=== PATIENT | male | born 1970 | race Caucasian/White ===

== ENCOUNTER → 2023-04-09 | Outpatient (CLI) | payer BC ==
--- NOTE | 2023-04-12 08:37 | CT ---
EXAMINATION TYPE: CT iac wo con DATE OF EXAM: 04/09/2023 COMPARISON: None HISTORY: 52 year-old male H90.0, Chronic hearing loss in both ears. CT DLP: 142.7 mGycm Automated exposure control for dose reduction was used. TECHNIQUE: Contiguous high-resolution scanning of the temporal bones without contrast. Coronal refor matted images obtained. FINDINGS: There is no abnormality of visualized intracranial structures. The skull base shows no gross abnormality. There is a mild debris along the inferior aspect of the opening of the external auditory canal on the right. Otherwise, the bilateral external auditory canals are clear. The middle ear cavities and mastoid air cells are well pneumatized. There is no abnormality of middle ear ossicles. The round and oval windows are normal. There is no abnormality of bony labyrinths. The vestibular and cochlear aqueducts are well visualized. The facial nerve canal is normal bilaterally. The internal auditory canal and meati are symmetrical bilaterally. There is no evidence of fractures. Scattered mild mucosal thickening throughout the paranasal sinuses. Reformatted images confirm above findings. IMPRESSION: 1. Some minimal debris at the opening of the right external auditory canal. 2. Otherwise, unremarkable temporal bone CT. 3. Mild chronic paranasal sinus disease.
== END | disposition home or self-care (01) ==
LOC: RADCTMAIN 16:15
PROVIDERS: ATTEND Otolaryngology
DX: H90.0 Conductive hearing loss, bilateral (principal); J34.89 Other specified disorders of nose and nasal sinuses
CPT/HCPCS: 70480

== ENCOUNTER → 2023-06-18 | Outpatient (CLI) | payer BC ==
[2023-06-18 16:36] LABS: ALT 66 U/L (10-49); AST 37 U/L (14-35); Albumin 4.5 d/dL (3.8-4.9); Albumin/Globulin Ratio 1.73 Ratio (1.60-3.17); Alkaline Phosphatase 101 U/L (41-126); Calcium 9.8 mg/dL (8.7-10.3); Carbon Dioxide 23.7 mmol/L (21.6-31.8); Chloride 102 mmol/L (96-109); Chol/HDL Ratio 3.96 Ratio; Globulin 2.6 d/dL (1.6-3.3); Glucose 110 mg/dL (70-110); Potassium 4.6 mmol/L (3.5-5.5); Sodium 137 mmol/L (135-145); Total Bilirubin 0.5 mg/dL (0.3-1.2); Total Protein 7.1 d/dL (6.2-8.2)
== END | disposition home or self-care (01) ==
LOC: LABWHC1 07:39
DX: Z00.00 Encounter for general adult medical examination without abnormal findings (principal); E78.5 Hyperlipidemia, unspecified; R73.03 Prediabetes
CPT/HCPCS: 36415; 80053; 80061; 83036

== ENCOUNTER 2023-10-13 08:41 | Day surgery (SDC) | payer BC ==
[2023-10-08 15:50] VITALS: BMI 34.9
[~2023-10-13 08:41] MED LIST: DEXAMETHASONE SOD PHOSPHATE 4 MG/ML 1 ML VIAL IV ONE; FAMOTIDINE 20 MG/2 ML VIAL IV PRN; HYDROmorphone 0.5 MG/0.5 ML SYRINGE IVP PRN; LACTATED RINGERS 1,000 ML IV SCH; LIDOCAINE 1% (10MG/ML) FOR IV START INTRADERMA PRN; MIDAZOLAM 2 MG/2 ML VIAL IV PRN; ONDANSETRON 4 MG/2 ML VIAL IVP ONE
[2023-10-13] MEDS: OXYMETAZOLINE 0.05% NASL SPRAY 1 SPRAY BOTTLE EA NOSTRIL PRN ×5 (09:20→09:40)
[2023-10-13 09:22] VITALS: RESP 16
[2023-10-13] MEDS ORDERED: fentaNYL (PF) 50 MCG/ML 2 ML AMP ONE (09:56)
[2023-10-13] MEDS ORDERED: KETOROLAC 15 MG/ML 1 ML VIAL ONE (09:56)
[2023-10-13] MEDS ORDERED: MIDAZOLAM 2 MG/2 ML VIAL ONE (09:56)
[2023-10-13] MEDS ORDERED: LIDOCAINE 1% INJ 10MG/ML (20 ML MDV) ONE (09:56)
[2023-10-13] MEDS ORDERED: SUCCINYLCHOLINE CHLORIDE 200 MG/10 ML VIAL IV ONE (09:56)
[2023-10-13] MEDS ORDERED: PROPOFOL 10 MG/ML 20 ML VIAL IV ONE (09:56)
[2023-10-13] MEDS ORDERED: LIDOCAINE 1%-EPI 1:100,000 50 ML VIAL SQ ONE ×2 (10:16)
[2023-10-13] MEDS ORDERED: BACITRACIN OINT 1 EACH PACKET TOPICAL ONE (10:18)
--- NOTE | 2023-10-13 10:39 | P.OP ---
Date of Procedure: 10/13/23 Preoperative Diagnosis: Deviated nasal septum Inferior turbinate hypertrophy Postoperative Diagnosis: Same Procedure(s) Performed: Septoplasty Outfracture and submucous resection inferior turbinates Anesthesia: JANELA Surgeon: Zaid Dooley Estimated Blood Loss (ml): 2 Pathology: other (Septal bone and cartilage) Condition: stable Disposition: PACU Indications for Procedure: This 53-year-old white male with difficulties with chronic nasal airway obstruction and mouth breathing tendencies. Operative Findings: Nasal septum deviated to the right anteriorly to the left posteriorly with the right approximately 50% obstruction in the left approximately 80% obstruction inferior turbinate hypertrophy bilateral Description of Procedure: DESCRIPTION OF PROCEDURE: The patient was brought to the operative suite, placed in the supine position. The patient underwent induction of general anesthesia with oral endotracheal intubation without difficulty. The patient was prepped and draped in the usual aseptic fashion. 1% lidocaine with 1:100,000 epinephrine was infused submucosally on both sides of the nasal septum. While this was taking vasoconstrictive effect, the inferior turbinates were infractured with a Walker elevator. Partial submucous resection of the inferior turbinates was performed with Coblation device ablating a portion of the submucosal soft tissue. The inferior turbinates were then outfractured with a Walker elevator. A left hemitransfixion incision was then made through the mucoperichondrial. Mucoperiosteal flap on the left elevated. Bony cartilaginous junction was disarticulated and mucoperiosteal flap on the right was elevated. Bony nasoseptal deformity were removed with Faby forceps and an inferior cartilaginous strip was removed, leaving a full 1.5 cm caudal strut. There was some missing bone and cartilage from previous surgery Checking intranasally, this corrected the nasal septal deformities and the hemitransfixion incision was closed with running 4-0 chromic suture. The bilateral Carranza airway splints coated in bacitracin ointment were placed in the nasal cavities and sutured transseptally with 4-0 nylon suture. The patient was then suctioned in an orogastric fashion. The patient was allowed to emerge from general anesthesia, having tolerated the procedure well and was extubated in the operating suite, transferred to postoperative recovery area in satisfactory condition.
[2023-10-13 11:05] VITALS: TEMP 97
[2023-10-13 11:56] VITALS: BP 137/88
[2023-10-13 12:22] VITALS: PULSE 80
== END 2023-10-13 12:23 | disposition home or self-care (01) ==
LOC: OR 08:41
PROVIDERS: ATTEND Otolaryngology
DX: J34.2 Deviated nasal septum (principal); J34.3 Hypertrophy of nasal turbinates; I10 Essential (primary) hypertension; F10.90 Alcohol use, unspecified, uncomplicated; Z87.891 Personal history of nicotine dependence; Z79.899 Other long term (current) drug therapy; Z98.890 Other specified postprocedural states
CPT/HCPCS: 30520; 30140; J2250; J0330; J1100; J0690; J2405; J2001; J3010; J3490; J1885; J2704; 88300

== ENCOUNTER → 2024-09-02 | Outpatient (CLI) | payer BC ==
[2024-09-02 13:06] LABS: Basophils # (A) 0.04 X 10*3/uL (0.00-0.10); Basophils % (A) 0.5 %; Eosinophils # (A) 0.49 X 10*3/uL (0.04-0.35); HCT 43.3 % (39.6-50.0); HGB 14.7 g/dL (13.0-17.0); Lymphocytes % (A) 17.3 %; MCHC 33.9 g/dL (32.0-37.0); MCV 88.4 FL (80.0-97.0); Mean Platelet Volume 9.5 FL (9.5-12.2); Monocytes % (A) 9.9 %; NRBC Per 100 WBC 0 X 10*3/uL (0.00-0.01); Neutrophils # (A) 5.35 X 10*3/uL (1.80-7.70); Neutrophils % (A) 65.9 %; Platelet Count 348 X 10*3/uL (140-440); RDW 12.7 % (11.5-14.5); WBC 8.11 X 10*3/uL (4.50-10.00)
[2024-09-02 13:26] LABS: ALT 39 U/L (10-49); AST 27 U/L (14-35); Albumin 4.1 g/dL (3.8-4.9); Albumin/Globulin Ratio 1.86 Ratio (1.60-3.17); Alkaline Phosphatase 102 U/L (41-126); Blood Urea Nitrogen 12.2 mg/dL (9.0-27.0); Carbon Dioxide 26.3 mmol/L (21.6-31.8); Chloride 106 mmol/L (96-109); Chol/HDL Ratio 3.35 Ratio; Globulin 2.2 g/dL (1.6-3.3); Glucose 106 mg/dL (70-110); LDL Cholesterol,Calculated 97.7 mg/dL (0.0-131.0); Potassium 4.4 mmol/L (3.5-5.5); Sodium 140 mmol/L (135-145); Total Bilirubin 0.7 mg/dL (0.3-1.2); Total Protein 6.3 g/dL (6.2-8.2)
== END | disposition home or self-care (01) ==
LOC: LABWHC1 08:09
PROVIDERS: ATTEND Internal Medicine
DX: I10 Essential (primary) hypertension (principal); E78.2 Mixed hyperlipidemia; R73.01 Impaired fasting glucose
CPT/HCPCS: 36415; 80053; 80061; 83036; 84443; 85025

== ENCOUNTER → 2024-11-10 | Outpatient (CLI) | payer BC ==
[2024-11-11 00:45] LABS: Alternaria alternata IgE <0.10 kU/L; Aspergillus fumagatus IgE <0.10 kU/L; Birch IgE 5.98 kU/L; Cat Epith & Dander IgE 6.19 kU/L; Cladosporian herbarum IgE <0.10 kU/L; Cockroach IgE <0.10 kU/L; Dermato. farinae IgE <0.10 kU/L; Dog Dander IgE 0.11 kU/L; Elm IgE 0.19 kU/L; Maple (Box Elder) IgE 0.72 kU/L; Oak IgE 1.38 kU/L; Ragweed,Common IgE 2.11 kU/L
== END | disposition home or self-care (01) ==
LOC: LABWHC1 15:07
PROVIDERS: ATTEND Otolaryngology
DX: J30.89 Other allergic rhinitis (principal)
CPT/HCPCS: 36415; 82785; 86003

== ENCOUNTER → 2024-11-17 | Outpatient (CLI) | payer BC ==
--- NOTE | 2024-11-17 16:17 | CT ---
EXAMINATION TYPE: CT sinus wo con CT DLP: 451 mGycm, Automated exposure control for dose reduction was used. DATE OF EXAM: 11/17/2024 4:11 PM COMPARISON: CTA IAC 04/09/2023. CLINICAL INDICATION:Male, 54 years old with history of J32.0 CHRONIC MAXILLARY SINUSITIS; PHH, sinus congestion CONTRAST: None. TECHNIQUE: Multiple thin axial images were obtained through the paranasal sinuses without the use of IV contrast. Additional coronal and sagittal reformatted images were submitted for evaluation. FINDINGS: Frontal sinuses: Normally developed and aerated. Frontal Recess: Clear Maxillary Sinuses: Normally developed. The right maxillary sinus is well-aerated. There is a stable 9 mm mucous retention cyst within the inferior left maxillary sinus Maxillary Infundibula(OMC): Clear, No Dave cells identified. Ethmoid sinuses: Normally developed and aerated. Ethmoidal notch: Supraorbital pneumatization is iden tified. Sphenoid sinuses: Normally developed and aerated. There is sellar sphenoid sinus pneumatization witho ut evidence of dehiscence. No dehiscence of carotid canal. No evidence of optic nerve dehiscence wit hin the sphenoid sinus. No evidence of Onodi cells. Sphenoethmoidal recesses: Clear. Nasal septum: Within normal limits.. Nasal Turbinates: Within normal limits. Mastoid air cells & middle ears: The air cells are clear. The middle ears are grossly unremarkable. Modified Soft tissues & Brain: Partially seen without gross abnormality. Globes are intact. Other: Cribriform plate demonstrates symmetric Keros classification type 2 cribriform plate. No evidence of bony dehiscence of skull base. Lamina papyracea is intact without evidence of remote orbital fracture or orbital prolapse into the e thmoid sinus. IMPRESSION: 1. No significant mucosal sinus disease. Stable left inferior maxillary sinus subcentimeter mucous re tention cyst. 2. The ostiomeatal units, frontonasal and sphenoethmoidal recesses are clear. [facility], , 11/17/2024 4:15 PM
== END | disposition home or self-care (01) ==
LOC: RADCTMAIN 15:49
PROVIDERS: ATTEND Otolaryngology
DX: J32.0 Chronic maxillary sinusitis (principal)
CPT/HCPCS: 70486

== ENCOUNTER → 2025-01-02 | Outpatient (CLI) | payer BC ==
[2025-01-02 16:47] VITALS: BP 136/89; PULSE 76; RESP 16; TEMP 98.2
--- NOTE | 2025-01-02 19:41 | P.SLEEP ---
History of Present Illness H&P Date: 01/02/25 Chief Complaint: SAVANNAH This is a 54-year-old male patient with known history of obstructive sleep apnea. The patient is coming in to establish care through our sleep center. His previous evaluation was done through [facility]. The patient was diagnosed having obstructive sleep apnea. He has undergone 2 home sleep studies. Initial home sleep study done in 2015 showed an AHI of 11. Subsequently, he had another home sleep study in 2021 which showed an AHI of 12. He was diagnosed having mild obstructive sleep apnea. 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 Initially, the patient was offered CPAP therapy to which she was not tolerant. Subsequently, he was referred to a dentist where he was given oral appliance/mandibular advancement device which he used for quite some time and subsequently quit as the patient was unable to tolerate as he was having choking and gasping while wearing the appliance. As such, the patient is not receiving any treatment. He is coming in for evaluation. He is still swallowing. He has gained weight around 60 pounds over the past 2 years. He has snoring. He has been told to quit breathing at nighttime. He goes to bed at around 6:30 PM and gets out of bed at 12:30 AM in the morning and is averaging around 5 to 6 hours of sleep. Denies having hypersomnia or sleepiness during the day. Denies having to fall asleep throughout the day. No problems with memory or concentration. No irritability. No anxiety or depression. No sleepwalking or sleep talking. No restlessness in lower extremities. His current [place] score is at 7. Noted the patient is currently not receiving any form of treatment. Review of Systems Constitutional: Denies chills, Denies fever Eyes: denies as per HPI, denies blurred vision, denies bulging eye, denies decreased vision, denies diplopia, denies discharge, denies dry eye, denies irritation, denies itching, denies pain, denies photophobia, denies loss of peripheral vision, denies loss of vision, denies tunnel vision/blind spots Ears: deny: decreased hearing, ear discharge, earache, tinnitus Ears, nose, mouth and throat: Reports as per HPI Breasts: absent: as per HPI, gynecomastia Cardiovascular: Reports as per HPI Respiratory: Reports sleep apnea Gastrointestinal: Reports as per HPI Genitourinary: Reports as per HPI Musculoskeletal: Reports as per HPI Musculoskeletal: absent: ankle pain, ankle stiffness, ankle swelling, as per HPI, elbow pain, elbow stiffness, elbow swelling, foot pain, foot stiffness, foot swelling, hand pain, hand stiffness, hand swelling, hip pain, hip stiffness, hip swelling, knee pain, knee stiffness, knee swelling, shoulder pain, shoulder stiffness, shoulder swelling, wrist pain, wrist stiffness, wrist swelling Integumentary: Reports as per HPI Neurological: Reports as per HPI Psychiatric: Reports as per HPI Hematologic/Lymphatic: Reports as per HPI Allergic/Immunologic: Reports as per HPI Past Medical History Past Medical History: GERD/Reflux, Hyperlipidemia, Hypertension, Sleep Apnea/CPAP/BIPAP Additional Past Medical History / Comment(s): History of diverticulosis/diverticulitis, acid reflux, hypertension, hayfever, nasal septal deviation History of Any Multi-Drug Resistant Organisms: None Reported Past Surgical History: Orthopedic Surgery Additional Past Surgical History / Comment(s): LT ANKLE SX. TUBES IN EARS CHILD. COLONOSCOPY. 2 nasal surgeries for correction of a nasal septal deviation. Past Anesthesia/Blood Transfusion Reactions: No Reported Reaction Past Psychological History: No Psychological Hx Reported Smoking Status: Former smoker Past Alcohol Use History: Occasional Additional Past Alcohol Use History / Comment(s): QUIT SMOKING 2018 Past Drug Use History: None Reported - Past Family History Father Family Medical History: Cancer Medications and Allergies Home Medications Medication Instructions Recorded Confirmed Type Atorvastatin [Lipitor] 40 mg PO DAILY 10/08/23 01/02/25 History Lansoprazole 15 mg PO DAILY 10/08/23 01/02/25 History Loratadine-Pseudoeph 10-240 mg 1 tab PO DAILY 10/08/23 01/02/25 History [Claritin-D 24 Hour] Metoprolol Succinate (ER) [Toprol 100 mg PO DAILY 10/08/23 01/02/25 History Xl] Losartan [Cozaar] 25 mg PO DAILY 01/02/25 01/02/25 History Allergies Allergy/AdvReac Type Severity Reaction Status Date / Time No Known Allergies Allergy Verified 10/08/23 14:52 Physical Exam Vitals: Vital Signs Temp Pulse Resp BP Pulse Ox 01/02/25 16:46 98.2 F 76 16 136/89 96 Intake and Output 01/02/25 01/02/25 01/02/25 06:59 14:59 22:59 Other: Weight 112.945 kg The patient appeared well nourished and normally developed. Vital signs as documented. The patient has a body mass index of 40.2 Head exam is unremarkable. No scleral icterus or corneal arcus noted. Neck is without jugular venous distension, thyromegaly, or carotid bruits. Carotid upstrokes are brisk bilaterally. The patient has a Mallampati class IV with crowding the posterior pharynx Lungs are clear to auscultation and percussion. Cardiac exam reveals the PMI to be normally sized and situated. Rhythm is regular. First and second heart sounds normal. No murmurs, rubs or gallops. Abdominal exam reveals normal bowel sounds, no masses, no organomegaly and no aortic enlargement. Extremities are nonedematous and both femoral and pedal pulses are normal. Examination of the skin revealed no evidence of significant rashes, suspicious appearing nevi or other concerning lesions. Neurologically, the patient is awake and alert and the patient does not have any focal neurological deficit. Cranial nerves are essentially intact. Assessment and Plan Plan: Obstructive sleep apnea, diagnosed with established by home sleep study done back in 2015 with an AHI of 11 and 2021 with an AHI of 12. The patient was not tolerant to CPAP therapy. He was given oral appliance which he was unable to tolerate and currently is not receiving any treatment. He is coming in for reevaluation. Of significance is some weight gain in the order of 16 pounds over the past 2 years. Continues to snore. No major hypersomnia or sleepiness. 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 The patient is currently a mouth breather. Plan I had a lengthy discussion with the patient. I also reviewed the records from previous sleep specialist the patient has seen at [facility]. The patient denies having any major hypersomnia or sleepiness. Functionality is not affected while being off treatment. His disease severity in terms of sleep apnea is mild and his previous home sleep studys done showed mild disease. Of concern is the weight gain the patient has accumulated over the past 3 years and the patient has gained about 16 pounds. The patient is considering reevaluation and treatment if there is any interval worsening of sleep apnea. Based on that, I made recommendations to repeat the home sleep study to reevaluate the presence and severity of the sleep apnea and decide on treatment options accordingly. He was encouraged to lose weight. 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 I do not think he is at a high risk of fall asleep while driving. Disease severity is mild and the patient is not having any major hypersomnia or sleepiness at this point. No other cardiovascular complications other than hypertension. Will continue to follow. Time with Patient: Greater than 30 Sleep Note - Sleep Data ESS Total: 8 - Sleep Note Sleep Note: Temperature: 98.2 F Pulse Rate: 76 Respiratory Rate: 16 Blood Pressure: 136/89 SpO2: 96 Height: 5 ft 6 in Weight: 112.945 kg BMI: Neck Circumference: 19
== END ==
LOC: 3 N SLEEP 15:39
PROVIDERS: ATTEND Internal Medicine Critical Care Medicine
DX: G47.33 Obstructive sleep apnea (adult) (pediatric) (principal); E66.9 Obesity, unspecified; Z68.41 Body mass index [BMI] 40.0-44.9, adult; Z99.89 Dependence on other enabling machines and devices; I10 Essential (primary) hypertension; K21.9 Gastro-esophageal reflux disease without esophagitis; K57.90 Diverticulosis of intestine, part unspecified, without perforation or abscess without bleeding; Z87.09 Personal history of other diseases of the respiratory system
CPT/HCPCS: 99211

== ENCOUNTER → 2025-01-13 | Outpatient (CLI) | payer BC ==
[2025-01-13 12:47] LABS: Basophils # (A) 0.05 X 10*3/uL (0.00-0.10); Basophils % (A) 0.6 %; Eosinophils # (A) 0.66 X 10*3/uL (0.04-0.35); Eosinophils % (A) 8.2 %; HGB 14.2 g/dL (13.0-17.0); Lymphocytes # (A) 1.57 X 10*3/uL (0.90-5.00); Lymphocytes % (A) 19.5 %; MCH 28.7 pg (27.0-32.0); MCHC 32.3 g/dL (32.0-37.0); MCV 89.1 FL (80.0-97.0); Mean Platelet Volume 9.7 FL (9.5-12.2); Monocytes # (A) 0.75 X 10*3/uL (0.20-1.00); Monocytes % (A) 9.3 %; NRBC Per 100 WBC 0 X 10*3/uL (0.00-0.01); Neutrophils # (A) 4.97 X 10*3/uL (1.80-7.70); Neutrophils % (A) 61.9 %; Platelet Count 376 X 10*3/uL (140-440); RBC 4.94 X 10*6/uL (4.40-5.60); RDW 13.1 % (11.5-14.5); WBC 8.04 X 10*3/uL (4.50-10.00)
[2025-01-13 12:50] LABS: BUN/Creat Ratio 10.67 Ratio (12.00-20.00); Blood Urea Nitrogen 9.6 mg/dL (9.0-27.0); Chloride 108 mmol/L (96-109); Chol/HDL Ratio 2.96 Ratio; Glucose 120 mg/dL (70-110); LDL Cholesterol,Calculated 87.2 mg/dL (0.0-131.0); Potassium 4.4 mmol/L (3.5-5.5); Sodium 143 mmol/L (135-145)
[2025-01-13 12:51] LABS: ALT 46 U/L (10-49); AST 29 U/L (14-35); Albumin 4.1 g/dL (3.8-4.9); Albumin/Globulin Ratio 1.58 Ratio (1.60-3.17); Alkaline Phosphatase 105 U/L (41-126); Calcium 9.3 mg/dL (8.7-10.3); Carbon Dioxide 22.8 mmol/L (21.6-31.8); Globulin 2.6 g/dL (1.6-3.3); Total Bilirubin 0.4 mg/dL (0.3-1.2); Total Protein 6.7 g/dL (6.2-8.2)
== END | disposition home or self-care (01) ==
LOC: LABWHC1 08:11
PROVIDERS: ATTEND Internal Medicine
DX: I10 Essential (primary) hypertension (principal); E78.2 Mixed hyperlipidemia
CPT/HCPCS: 36415; 80053; 80061; 83036; 85025

== ENCOUNTER → 2025-01-18 | Outpatient (CLI) | payer BC ==
--- NOTE | 2025-01-23 23:30 | P.PCN ---
Date of Procedure: 01/18/25 Operative Findings: Home sleep study report Date of service is 01/18/2025 History This is a 54-year-old male patient with known history of obstructive sleep apnea. The patient is coming in to establish care through our sleep center. His previous evaluation was done through [facility]. The patient was diagnosed having obstructive sleep apnea. He has undergone 2 home sleep studies. Initial home sleep study done in 2015 showed an AHI of 11. Subsequently, he had another home sleep study in 2021 which showed an AHI of 12. He was diagnosed having mild obstructive sleep apnea. 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 Initially, the patient was offered CPAP therapy to which she was not tolerant. Subsequently, he was referred to a dentist where he was given oral appliance/mandibular advancement device which he used for quite some time and subsequently quit as the patient was unable to tolerate as he was having choking and gasping while wearing the appliance. As such, the patient is not receiving any treatment. He is coming in for evaluation. He is still swallowing. He has gained weight around 60 pounds over the past 2 years. He has snoring. He has been told to quit b reathing at nighttime. He goes to bed at around 6:30 PM and gets out of bed at 12:30 AM in the morning and is averaging around 5 to 6 hours of sleep. Denies having hypersomnia or sleepiness during the day. Denies having to fall asleep throughout the day. No problems with memory or concentration. No irritability. No anxiety or depression. No sleepwalking or sleep talking. No restlessness in lower extremities. His current [place] score is at 7. Noted the patient is currently not receiving any form of treatment. Physical findings BMI is 40.2 Technical description The [employer] system was used to complete his home sleep study. This is a type III home sleep study evaluation. The total recording duration was 6 hours and 53 minutes. The study started 6 PM and ended at 12:53 AM. There was a total of 6 hours and 12 minutes of flow monitoring and 6 hours and 21 minutes of oxygen saturation monitoring. This was an adequate study Results The respiratory evaluation showed a total of 235 obstructive apneas and 97 obstructive hypopneas. The resulting AHI was 51.9 and disease was worse in the supine body position with an AHI of 75.7 while being in the supine body position . Oxygenation analysis The baseline pulse ox while awake was 94%. Average pulse ox during sleep was 89% and a minimum pulse ox of 71% and the patient spent approximately 1 hour and 54 minutes of sleep time below pulse ox of 89% Cardiac summary The average heart rate was 75 with a minimum heart rate of 40 and a maximum heart rate of 201 Assessment Severe SAVANNAH. Based on the current study, the patient has severe obstructive sleep apnea with an AHI of 51.9, and disease severity is worse in the supine body position with an AHI of 75 while being supine. Noted the patient has been diagnosed having obstructive sleep apnea in the past. Based on a sleep study that was done back in 2015, the patient had an AHI of 11 and another sleep study in 2021 showed an AHI of 12. The patient was not tolerant to CPAP therapy. He was given oral appliance which he was unable to tolerate and currently is not receiving any treatment. Severe nocturnal oxygen desaturation secondary to SAVANNAH with a minimum pulse ox of 71% Obesity with a current body mass index of 40.2 of significance is some weight gain in the order of 16 pounds over the past 2 years. 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 The patient is currently a mouth breather. Plan I also reviewed the records from previous sleep specialist the patient has seen at [facility]. The patient denies having any major hypersomnia or sleepiness. Functionality is not affected while being off treatment. Nevertheless, the current sleep study shows significant worsening in his obstructive sleep apnea. Currently his disease is severe and his baseline AHI is 51.9, worse in supine body position. 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 Subsequent follow-up is also to be done to make sure that the patient is using his CPAP and is quite compliant to the treatment is successful. For now, the patient will be advised to come into the sleep center to undergo a CPAP titration. No other cardiovascular complications other than hypertension. Will continue to follow.
== END ==
LOC: 3 N SLEEP 16:28
PROVIDERS: ATTEND Internal Medicine Critical Care Medicine
DX: G47.33 Obstructive sleep apnea (adult) (pediatric) (principal); I10 Essential (primary) hypertension; K21.9 Gastro-esophageal reflux disease without esophagitis; K57.90 Diverticulosis of intestine, part unspecified, without perforation or abscess without bleeding; E66.9 Obesity, unspecified; Z68.41 Body mass index [BMI] 40.0-44.9, adult

== ENCOUNTER 2025-02-21 19:40 | Outpatient (CLI) | payer BC ==
--- NOTE | 2025-02-28 08:12 | P.PCN ---
Date of Procedure: 02/21/25 Operative Findings: History This is a 54-year-old male patient with known history of obstructive sleep apne a. The patient is coming in to establish care through our sleep center. His previous evaluation was done through [facility]. The patient was diagnosed having obstructive sleep apnea. He has undergone 2 home sleep studies. Initial home sleep study done in 2015 showed an AHI of 11. Subsequently, he had another home sleep study in 2021 which showed an AHI of 12. He was diagnosed having mil d obstructive sleep apnea. 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 Initially, the patient was offered CPAP therapy to which she was not tolerant. Subsequently, he was referred to a dentist where he was given oral appliance/mandibular advancement device which he used for quite some time and subsequently quit as the patient was unable to tolerate as he was having choking and gasping while wearing the appliance. As such, the patient is not receiving any treatment. He is coming in for evaluation. He is still swallowing. He has gained weight around 60 pounds over the past 2 years. He has snoring. He has been told to quit breathing at nighttime. He goes to bed at around 6:30 PM and gets out of bed at 12:30 AM in the morning and is averaging around 5 to 6 hours of sleep. Denies having hypersomnia or sleepiness during the day. Denies having to fall asleep throughout the day. No problems with memory or concentration. No irritability. No anxiety or depression. No sleepwalking or sleep talking. No restlessness in lower extremities. His current Comstock score is at 7. Noted the patient is currently not receiving any form of treatment. The patient underwent a home sleep study and the patient was diagnosed having severe SAVANNAH with an AHI of 51.9 worsening supine body position. Based on that, the patient is coming in to undergo a CPAP titration study. Pertinent physical findings Body mass index is 40.2 with a weight of 249 Technical description The patient was studied using a standard complex polysomnography protocol that included recording of the Lead II EKG, Central, occipital and frontal EEG, right and left outer canthus EOG, submental EMG, right and left anterior tibialis EMG, respiratory airflow by thermocouple and or pressure/flow transducer, respiratory efforts by abdominal and thoracic PVDF belts, oxygen saturation by cable oximetry. Position by observation synchronized the PSG. Equipment used: Pumodo. Stepwise CPAP titration was done to eliminate all obstructive respiratory events Sleep architecture The total recording duration was 437.0 minutes. The total sleep time was 368.5 minutes. The wake after sleep onset time was 63 minutes. The patient's sleep latency was 4.5 minutes. Latency to REM sleep was 9.5 minutes. Sleep architecture was characterized by 0.7% stage I, 71% stage II, 3.5% stage III and a 24.8% REM sleep. The total arousal index was 20.0. CPAP titration summary The patient was started on CPAP therapy and initiated pressure was started. 5 cm of water and the pressure was gradually increased by increments of 1 cm to reach a maximum CPAP pressure of 10 cm of water. CPAP therapy was ineffective as the patient continued to have severe nocturnal oxygen desaturations and obstructive apneas. Following that, the patient was switched to a BiPAP initiated BiPAP pressure of 15 over 11 cm of water and the BiPAP titration was continued to reach a maximum pressure of 20/20 cm of water. Reviewed the CPAP and BiPAP Titration Taking about the Patient Sleep Stage and Body Position. The Patient Is Found Supine and Sideways Body Position. All Sleep Stages Were Encountered. The BiPAP Pressure of 22/18, the Patient Had Adequate Elimination of the Obstructive Respiratory Events and was able to maintain oxygen saturation above 90%. Lower BiPAP pressures were essentially ineffective. Sleep continuity summary The patient had a total of 123 arousals with an arousal index of 20. The respiratory arousal index was 7.5 Periodic limb movement summary No significant preoperative movement identified Cardiac rates Average heart rate was 78 with a minimum heart rate of 71 and a maximum heart rate of 87. Assessment Severe SAVANNAH. Based on the current study, the patient has severe obstructive sleep apnea with an AHI of 51.9, and disease severity is worse in the supine body position with an AHI of 75 while being supine. Noted the patient has been diagnosed having obstructive sleep apnea in the past. Based on a sleep study that was done back in 2015, the patient had an AHI of 11 and another sleep study in 2021 showed an AHI of 12. The patient was not tolerant to CPAP therapy. CPAP titration was completed and that CPAP therapy was not effective as the patient continued to have ongoing obstructive respiratory events and oxygen desaturations. Subsequently, the patient was switched to a BiPAP and the treatment was more effective at high BiPAP pressures. Obstructive respiratory events were essentially eliminated to the BiPAP pressure of 22/18 cm of water. Severe nocturnal oxygen desaturation secondary to SAVANNAH with a minimum pulse ox of 71%, improved on BiPAP Obesity with a current body mass index of 40.2 of significance is some weight gain in the order of 16 pounds over the past 2 years. 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 The patient is currently a mouth breather. Plan This is a case of severe obstructive sleep apnea. The patient has not been tolerant to CPAP therapy in the past. In addition, the CPAP titration showed that CPAP therapy is ineffective in eliminating obstructive respiratory events. As such, the patient will be started on a BiPAP. Recommend starting VPAP auto at a EPAP minimum of 12 and a maximum pressure of 22 pressure support of 4. 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 The patient will be seen in short-term follow-up and further adjustments will be done accordingly. Maintain good sleep hygiene measures Maintain a regular sleep schedule No other cardiovascular complications other than hypertension. Will continue to follow.
== END 2025-02-22 05:20 | disposition home or self-care (01) ==
LOC: 3 N SLEEP 19:40
PROVIDERS: ATTEND Internal Medicine Critical Care Medicine
DX: G47.33 Obstructive sleep apnea (adult) (pediatric) (principal); I10 Essential (primary) hypertension; K21.9 Gastro-esophageal reflux disease without esophagitis; K57.90 Diverticulosis of intestine, part unspecified, without perforation or abscess without bleeding; J30.1 Allergic rhinitis due to pollen; E66.9 Obesity, unspecified; Z68.41 Body mass index [BMI] 40.0-44.9, adult; Z87.09 Personal history of other diseases of the respiratory system; Z99.89 Dependence on other enabling machines and devices
CPT/HCPCS: 95811